=== PATIENT | male | born 1960 | race Two or more races ===

== ENCOUNTER 2022-02-28 07:01 | Emergency (ER) | payer OTHER, SELFPAY ==
[2022-02-28 07:06] VITALS: BP 165/89; PULSE 70; RESP 16; TEMP 36.9; O2SAT 97; BMI 29.0
[2022-02-28] MEDS: Fluorescein Sodium STRIP 1 STRIP EYE-BOTH (08:12)
[2022-02-28] MEDS: Tetracaine HCl/PF 0.5% Oph Sol 4 ML DROPS 1 DROP EYE-LEFT (08:12)
--- NOTE | 2022-02-28 08:32 | ED.EYEPROB ---
HPI - Eye Problem General Chief complaint: Eye Problems Stated complaint: fb l eye at work Time Seen by Provider: 02/28/22 08:04 Source: patient Mode of arrival: ambulatory Limitations: no limitations History of Present Illness HPI Narrative: 61 yo male presents to the ER with foreign body sensation in his left eye after he was working with metal and stone at work yesterday. He reports he feels a foreign body under the eyelid in the left upper eye whenever he closes eye are blanks. He denies any vision changes. He was wearing safety glasses at the time. MD chief complaint: foreign body Onset (ago): day(s) (1) Onset description: sudden Duration: intermittent Location: left eye Eye Symptoms: foreign body sensation Place: work Mechanism: direct trauma Severity: moderate If Pain, Quality: aching Associated symptoms: none Treatments Prior to Arrival: none Related Data Previous Rx's Medication Instructions Recorded sulfacetamide sodium 10 % eye 1 drp OPHTHALMIC (EYE) Q3H #15 ml 02/28/22 drops (Bleph-10) Allergies Allergy/AdvReac Type Severity Reaction Status Date / Time Unable to Assess Allergy Unverified 02/28/22 08:04 Review of Systems Review of Systems: Constitutional: No Fever, No Chills ENT/Mouth: No sore throat, No Rhinorrhea, No Swallowing Difficulty Eyes: + Eye Pain, No Swelling, No Redness, +FB sensation Cardiovascular: No Chest Pain, No SOB Respiratory: No Cough, No Sputum Gastrointestinal: No Nausea, No Vomiting, No abdominal Pain Musculoskeletal: No joint pain, No Myalgias Skin: No Skin Lesions, No rash Neuro: No Weakness, No Numbness, No Dizziness, No Headache Heme/Lymph: No Bruising, No Lymphadenopathy PMFSH Social History Social History Advance Directives: No Advance Directives Information Provided: No Physical Exam Vital Signs: Vital Signs: Last Vital Signs Temp 98.4 F 02/28/22 07:06 Pulse 70 02/28/22 07:06 Resp 16 02/28/22 07:06 BP 165/89 H 02/28/22 07:06 Pulse Ox 97 02/28/22 07:06 BMI result Body Mass Index 29.0 Appearance: Alert. Oriented X3. No acute distress. HEENT: normal external inspection. Pupils equal round reactive to light, extraocular movements intact. 2 o'clock position there is a small linear corneal abrasion, no foreign body visualized with slight limp. CVS: Normal heart rate and rhythm. Pulses normal. Respiratory: No respiratory distress. Skin: Skin warm and dry. Normal skin color. Normal skin turgor. No rashes. Extremities: Normal inspection x4 Neuro: Oriented X 3. Grossly normal, nonfocal Course Course Course Narrative: 61-year-old male presents to the ER with foreign body sensation in the left eye after working with stone and metal yesterday. On examination there is no metal visualized w/ slit lamp. There is a small corneal abrasion. Will refer to Dr. Greene and prescribe topical antibiotic drops. Stable for discharge home. Discharge Plan Discharge Clinical Impression: Corneal abrasion Patient Disposition: Home, Self-Care Instructions: Corneal Abrasion (DC), Eye Foreign Body (ED) Additional Instructions: If you develop new or worsening symptoms call 911 or come back to the ER for further evaluation. Prescriptions: New sulfacetamide sodium [Bleph-10] 10 % drops 1 drp ophthalmic (eye) Q3H Qty: 15 0RF Referrals: Kannan Greene [Physician] - (?metal in the eye, corneal abrasion) Interventions: ED Discharge Assessment Last Done: 02/28/22 09:43 Discharge Date/Time: 02/28/22 09:44
== END 2022-02-28 09:44 | disposition home or self-care (01) ==
PROVIDERS: Emergency Provider Emergency Medicine; PCP Internal Medicine
DX: S05.02XA Injury of conjunctiva and corneal abrasion without foreign body, left eye, initial encounter (principal); X58.XXXA Exposure to other specified factors, initial encounter; Y93.89 Activity, other specified; Y92.9 Unspecified place or not applicable; Y99.0 Civilian activity done for income or pay
CPT/HCPCS: 99283